=== PATIENT | male | born 1970 | race Caucasian/White ===

== ENCOUNTER 2024-10-06 08:22 | Emergency (ER) | payer MEDICAID, SELFPAY ==
[2024-10-06 08:24] VITALS: BMI 26.4
[2024-10-06 08:29] VITALS: BP 164/118; PULSE 98; RESP 18; TEMP 37.2; O2SAT 99
--- NOTE | 2024-10-06 08:41 | EDNOTE_ITS ---
ED Headache RME/HPI General Chief Complaint: Headache Stated Complaint: BP 200/137; C/O BAD HEADACHE Time Seen by Provider: 10/06/24 08:40 Source: patient Arrival date/time: 10/06/24 08:22 Mode of arrival: ambulatory Limitations: no limitations RME / HPI RME / HPI Narrative: 53-year-old male presents to the ED with a complaint of a headache he believes is due to his high blood pressure which was 192/137 this morning. MD Complaint: headache Onset (ago): hour(s) (There is [employer]) Onset description: sudden Location: frontal Severity: moderate Quality: aching Associated symptoms: none Related Data Previous Rx's ?Medication ?Instructions ?Recorded amlodipine 10 mg tablet 10 mg PO HS HTN #30 tabs cefuroxime axetil 500 mg tablet 500 mg PO BID UTI #4 t abs 11/18/21 losartan 50 mg tablet 50 mg PO QDAY HTN #30 tabs 0 11/18/21 tamsulosin 0.4 mg capsule 0.4 mg PO QDAY #30 caps 10/26 07/15 hydrocodone 5 mg-acetaminophen 325 1 tab PO TID #15 ta bs 06/08/22 mg tablet acetaminophen 500 mg capsule 1,000 mg (2 x 500 mg) PO TID #30 01/16/23 caps losartan 50 mg tablet 50 mg PO QDAY #30 tabs 10/06 Allergies Allergy/AdvReac Type Severity Reaction Status Date / Time No Known Allergies Allergy Verified 10/06/24 08:26 Review of Systems Review of Systems Systems Reviewed: All systems reviewed, normal except as documented Constitutional Constitutional: Reports system reviewed and no additional complaints, except as documented Eyes Eyes: Reports system reviewed and no additional complaints, except as documented, Denies dry eyes, Denies exophthalmos and Reports floaters Cardiovascular Cardiovascular: Denies chest pain with activity and Denies claudication ED Exam Narrative Physical exam: Patient is able to touch his index finger to his nose, patient is able to tap his heels to his shins, patient ambulates without assistance. General Limitations: Present no limitations General appearance: Present alert and in no apparent distress Head Head exam: Present atraumatic Eye Eye exam: Present normal appearance, PERRL and EOMI ENT ENT exam: Present normal exam, normal oropharynx and mucous membranes moist Neck Neck exam: Present normal inspection Chest Chest inspection: Present normal inspection and symmetric chest wall rise Cardiovascular Cardiovascular exam: Present regular rate and normal rhythm Abdominal Exam Abdominal exam: Present soft Rectal Exam Rectal exam: Present deferred Extremities Exam Extremities exam: Present normal inspection and full ROM Back Exam Back exam: Present normal inspection and full ROM Neurological Exam Neurological exam: Present alert and oriented X3 Psychiatric Psychiatric exam: Present normal affect and normal mood Skin Skin exam: Present warm, dry, intact and normal color Course Course Course Narrative: Patient will have an IV inserted and he will have 30 mg of Toradol, 25 mg of Benadryl, 10 mg of Reglan IV. A CBC and a CMP will also be drawn and sent to the lab Quality Measures none (NA) Orders Category Date Time Status IV [Insert IV] NOW Care 10/06/24 09:18 Active CBC Stat Lab 10/06/24 09:25 Completed CMP [Comprehensive Metabolic Panel] Stat Lab 10/06/24 09:25 Completed DiphenhydrAMINE INJ [Benadryl Inj] Med 10/06/24 08:45 Discontinued 25 mg IVP X1 ONE Ketorolac Inj [Toradol Inj] Med 10/06/24 08:45 Discontinued 30 mg IVP X1 ONE Losartan [Cozaar] Med 10/06/24 10:43 Discontinued 50 mg PO X1 ONE Metoclopramide Inj [Reglan Inj] Med 10/06/24 08:45 Discontinued 10 mg IVP X1 ONE cloNIDine HCL [Catapres] Med 10/06/24 10:33 Discontinued 0.1 mg PO X1 ONE NA Vital Signs Vital signs: Vital Signs Temperature 98.9 F 10/06/24 08:29 Pulse Rate 98 10/06/24 08:29 Respiratory Rate 18 10/06/24 08:29 Blood Pressure 164/118 H 10/06/24 08:29 Pulse Oximetry (%) 99 10/06/24 08:29 Oxygen Delivery Method Room Air 10/06/24 08:29 Pulse ox room air is 99%. Headache MDM Narrative MDM Narrative:: Patient will be discharged in no apparent distress. Patient is to primary care physician for follow-up to today's visit. Patient will have 50 mg of losartan before he is discharged and I will send to the pharmacy of his choice losartan 2 mg to be consumed 1 p.o. daily #30. Patient data External records reviewed:: Other (specify) (NA) Clinical information provided by:: none (NA) Social determinants that could affect healthcare access:: none (NA) Patient has the following chronic illnesses:: NA How is presenting disease/condition affected by chronic disease/condition?: no chronic disease (NA) Evaluation data The following diagnostics were reviewed and interpreted by me:: other (specify) (NA) Lab and/or radiology exams considered but not ordered:: NA Interpretation Summary: NA Medications / Prescriptions Medications or Prescriptions considered but not ordered:: NA Medication administrations:: Medication Administration History Discontinued Medications Clonidine (Clonidine Hcl 0.1 Mg Tablet) 0.1 mg PO X1 ONE Stop: 10/06/24 10:34 Last Admin: 10/06/24 10:58 Dose: Not Given Documented By: LORNA Non-Admin Reason: Cancelled by Provider Diphenhydramine HCl (Diphenhydramine Inj 50 Mg/Ml Vial) 25 mg IVP X1 ONE Stop: 10/06/24 08:46 Last Admin: 10/06/24 09:32 Dose: 25 mg Documented By: LORNA Ketorolac Tromethamine (Ketorolac Inj 30 Mg/Ml Vial) 30 mg IVP X1 ONE Stop: 10/06/24 08:46 Last Admin: 10/06/24 09:31 Dose: 30 mg Documented By: LORNA Losartan Potassium (Losartan Potassium 25 Mg Tablet) 50 mg PO X1 ONE Stop: 10/06/24 10:44 Metoclopramide HCl (Metoclopramide Inj 5 Mg/Ml Vial 2 Ml) 10 mg IVP X1 ONE; Protocol Stop: 10/06/24 08:46 Last Admin: 10/06/24 09:32 Dose: 10 mg Documented By: LORNA DONE Consultations Consultation(s) initiated? (list below): No Consultation #1 (Physician, Specialty, Details): NA Diagnosis Differential diagnosis headache: subarachnoid hemorrhage, headache, meningitis, sinusitis and postconcussion syndrome Most likely diagnosis given after review of the tests above:: HEADACHE Admission Indicated Admission indicated?: not indicated Admission Request Was there a request for admission?: No Disposition Plan Disposition Plan: Discharge Discharge Attestation Discharge Attestation: The patient and all family members were given an opportunity to ask questions and understood the discharge instructions. Discharge instructions specifically effects, indications for sooner follow up or return to the emergency department, and the expected course of current diagnosis. Patient condition: Stable Discharge Plan Plan Patient Disposition: HOME (Self Care) Discharge Disposition comment: Patient will be discharged in no apparent distress Patient condition on transfer: Stable Prescriptions/Referrals Prescriptions/Med Rec: New losartan 50 mg tablet 50 mg PO QDAY Qty: 30 0RF No Action hydrocodone-acetaminophen 5-325 mg tablet 1 tab PO TID MDD 3 Qty: 15 0RF acetaminophen 500 mg capsule 1,000 mg PO TID Qty: 30 0RF tamsulosin 0.4 mg Capsule 0.4 mg PO QDAY Qty: 30 0RF losartan 50 mg tablet 50 mg PO QDAY Qty: 30 0RF cefuroxime axetil 500 mg tablet 500 mg PO BID Qty: 4 0RF amlodipine 10 mg tablet 10 mg PO HS Qty: 30 0RF Referrals: Marleny Messer MD [Primary Care Provider] - In 1 week Problem List Clinical Impression: BP (high blood pressure) Patient/Caregiver Discharge Instructions Discharge Activity: activity as tolerated Education Materials: Controlling High Blood Pressure, Blood Pressure Check Steps Print Language: Czech Stand Alone Forms: Luh Award Info., Patient Portal Info Letter PA/HAND CIGAR MAKING SUPERVISOR Supervising Physician PA/HAND CIGAR MAKING SUPERVISOR Supervising Physician: JUANY JOHNSON Attestation Attestation The patient was seen by the midlevel practitioner. I, the co-signing physician, was present during the entire ER visit. While I did not physically examine the patient, I was available for consultation as needed. I agree with the plan and documentation.
--- NOTE | 2024-10-06 09:14 | PC.NURSE ---
Patient from [facility] and taken to room 1 with c/o gradual left sided anterior head pain radaiting to left eye 5/10 at this time. Patient states he has h/o headaches and estefania blood pressure and has not taken his medication in 3 weeks because he ran out, patient has no other complaints at this time, new orders received from provider, call light within reach.
[2024-10-06 09:17] VITALS: BP 160/108; PULSE 82; RESP 16; O2SAT 96
[2024-10-06] MEDS: KETOROLAC INJ 30 MG/ML VIAL IVP (09:31)
[2024-10-06] MEDS: METOCLOPRAMIDE INJ 5 MG/ML VIAL 2 ML 10 MG IVP (09:32)
[2024-10-06 09:55] LABS: Basophils # (Auto) 0.1 Thou/mm3 (0.0-0.2); Basophils % (Auto) 1 % (0-2.5); Eosinophils # (Auto) 0.2 Thou/mm3 (0.0-0.5); Eosinophils % (Auto) 3 % (0-10); Hematocrit 41.3 % (41.0-53.0); Hemoglobin 13.7 g/dL (13.5-16.0); Immature Granulocytes Auto 0.03 Thou/mm3 (0.00-0.00); Lymphocytes # (Auto) 1.7 Thou/mm3 (1.0-4.8); Lymphocytes % (Auto) 22 % (10-50); Mean Corpuscular HGB Conc 33.2 g/dl (31.0-37.0); Mean Corpuscular Hemoglobin 29.5 pg (25.0-35.0); Mean Corpuscular Volume 89 fL (80-100); Monocytes # (Auto) 0.6 Thou/mm3 (0.0-0.8); Monocytes % (Auto) 8 % (0-12); Neutrophils # (Auto) 4.9 Thou/mm3 (1.8-7.7); Neutrophils % (Auto) 66 % (37-80); Nucleated Red Blood Cell # 0.00 Thou/mm3 (0.00-0.00); Nucleated Red Blood Cell % 0 /100 WBC (0); Platelet Count 267 Thou/mm3 (140-440); RDW Standard Deviation 50.8 fL (35.1-43.9); Red Blood Count 4.64 Miln/mm3 (4.50-5.90); White Blood Count 7.5 Thou/mm3 (3.8-10.6)
[2024-10-06 10:02] LABS: Alanine Aminotransferase 19 U/L (10-49); Albumin, Serum 4.0 gm/dL (3.5-5.0); Albumin/Globulin Ratio 1.6 (1.2-2.2); Alkaline Phosphatase 82 U/L (46-116); Anion Gap 7 (7-16); Aspartate Amino Transferase 18 U/L (0-34); BUN/Creatinine Ratio 10 Ratio (12-20); Bilirubin,Total 0.4 mg/dL (0.3-1.2); Blood Urea Nitrogen 12 mg/dL (9-23); Calcium 9.4 mg/dL (8.3-10.6); Calcium (Corrected) 9.4 mg/dL (8.5-10.1); Carbon Dioxide 26.2 mMol/L (20.0-31.0); Chloride 108 mMol/L (98-107); Creatinine (Component) 1.2 mg/dL (0.6-1.3); Estimated Creatinine Clearance 78.6 mL/min (>60); Globulin 2.5 gm/dL (2.3-3.5); Glucose 116 mg/dL (74-106); Osmolality,Calculated 281 (275-295); Potassium 3.6 mMol/L (3.4-5.1); Sodium 141 mMol/L (136-145); Total Protein 6.5 gm/dL (5.7-8.2); eGFR > 60 See Note
[2024-10-06 11:05] VITALS: BP 173/115; PULSE 99
[2024-10-06] MEDS: LOSARTAN POTASSIUM 25 MG TABLET 50 MG PO (11:05)
[2024-10-06 11:13] VITALS: BP 173/115; PULSE 99; RESP 16; O2SAT 99
== END 2024-10-06 11:13 | disposition home or self-care (01) ==
PROVIDERS: Emergency Provider Physician Assistant; PCP Family Medicine
DX: R03.0 Elevated blood-pressure reading, without diagnosis of hypertension (principal)
CPT/HCPCS: 36415; 80053; 85025; 96374; 96375; 99283; J1200; J1885; J2765; A9270